=== PATIENT | male | born 1965 | race Caucasian/White ===

== ENCOUNTER → 2017-10-06 | Outpatient (CLI) | payer OTHER ==
--- NOTE | 2017-10-06 11:12 | RADIOLOGY REPORT (SQ) ---
EXAM DESCRIPTION: CHEST 2 VIEWS COMPLETED DATE/TIME: 10/06/2017 10:19 am REASON FOR STUDY: COUGH (R05) COMPARISON: None. EXAM PARAMETERS: NUMBER OF VIEWS: two views TECHNIQUE: Digital Frontal and Lateral radiographic views of the chest acquired. RADIATION DOSE: NA LIMITATIONS: none FINDINGS: LUNGS AND PLEURA: Mild hyperinflation of the lungs and flattening of the diaphragms. The interstitial markings are slightly prominent in size. No acute pulmonary consolidation. No pneumot horax or pleural effusion. MEDIASTINUM AND HILAR STRUCTURES: No masses or contour abnormalities. HEART AND VASCULAR STRUCTURES: Heart normal size. No evidence for failure. BONES: No acute findings. HARDWARE: None in the chest. OTHER: Postsurgical changes right shoulder. IMPRESSION: 1. NO ACUTE RADIOGRAPHIC FINDING IN THE CHEST. TECHNICAL DOCUMENTATION: JOB ID: [id number] [employer]- All Rights Reserved Reading location - IP/workstation name: [email or web address]
--- NOTE | 2017-10-06 14:37 | RADIOLOGY REPORT (SQ) ---
EXAM DESCRIPTION: CAROTID DOPPLER COMPLETED DATE/TIME: 10/06/2017 1:18 pm REASON FOR STUDY: LT CAROTID BRUIT R06.00 DYSPNEA, UNSPECIFIED R09.89 OTH SYMPTOMS AND SIGNS INVOL VING THE CIRC AND RESP SY COMPARISON: None. TECHNIQUE: Grayscale ultrasound, Doppler velocity and spectra, and color Doppler images acquired of the extra-cranial carotid and vertebral arteries. Images stored on PACS. LIMITATIONS: None. FINDINGS: RIGHT CAROTID CCA Velocities: Within normal limits. ICA Velocities Peak systolic 0.93 m/s. End diastolic 0.22 m/s. Proximal ICA/CCA peak systolic ratio 1.2. Mild homogeneous plaque proximal ICA. LEFT CAROTID CCA Velocities: Within normal limits. ICA Velocities Peak systolic 0.90 m/s. End diastolic 0.25 m/s. Proximal ICA/CCA peak systolic ratio 0.9. Mild homogeneous plaque proximal ICA. VERTEBRAL ARTERIES: Antegrade flow. Normal waveforms. SUBCLAVIAN ARTERIES: No finding. OTHER: No other significant finding. IMPRESSION: NO HEMODYNAMICALLY SIGNIFICANT STENOSIS. COMMENT: Quality ID #[id number]: Velocity criteria are extrapolated from the diameter data as defined by t he Society of Radiologists in Ultrasound Consensus Conference. Radiology 2003: 229; 340-346. TECHNICAL DOCUMENTATION: JOB ID: [id number] [employer]- All Rights Reserved Reading location - IP/workstation name: [facility]
== END ==
LOC: RAD 09:39
PROVIDERS: ATTEND Physician Assistant
DX: R06.00 Dyspnea, unspecified (principal); R09.89 Other specified symptoms and signs involving the circulatory and respiratory systems; R05 Cough
CPT/HCPCS: 71046; 93880

== ENCOUNTER → 2017-10-07 | Outpatient (CLI) | payer OTHER ==
[2017-10-07 10:30] LABS: ALANINE AMINOTRANSFERASE 121 U/L (21-72); ALBUMIN 4.4 g/dL (3.5-5.0); ALKALINE PHOSPHATASE 92 U/L (38-126); ANION GAP 12 (5-19); ASPARTATE AMINO TRANSFERASE 91 U/L (17-59); BILIRUBIN,DIRECT 0.3 mg/dL (0.0-0.4); BILIRUBIN,TOTAL 0.5 mg/dL (0.2-1.3); BLOOD UREA NITROGEN 9 mg/dL (7-20); CALCIUM 9.5 mg/dL (8.4-10.2); CARBON DIOXIDE 27 mmol/L (22-30); CHLORIDE 104 mmol/L (98-107); CHOLESTEROL 305.33 mg/dL (0-200); GLUCOSE 150 mg/dL (75-110); POTASSIUM 4.9 mmol/L (3.6-5.0); SODIUM 143.1 mmol/L (137-145); TOTAL PROTEIN 7.7 g/dL (6.3-8.2)
[2017-10-07 10:42] LABS: DIRECT LDL 179 mg/dL (<100)
[2017-10-07 10:44] LABS: TRIGLYCERIDES 610 mg/dL (<150)
== END ==
LOC: OD 08:39
PROVIDERS: ATTEND Family Medicine
DX: J44.9 Chronic obstructive pulmonary disease, unspecified (principal)
CPT/HCPCS: 36415; 80053; 80061; 83036

== ENCOUNTER → 2017-10-23 | Outpatient (CLI) | payer OTHER ==
--- NOTE | 2017-10-23 10:48 | RADIOLOGY REPORT (SQ) ---
EXAM DESCRIPTION: CT CHEST WITHOUT COMPLETED DATE/TIME: 10/23/2017 10:32 am REASON FOR STUDY: COUGH R05 COUGH COMPARISON: Two-view chest 10/06/2017 TECHNIQUE: CT scan performed of the chest without intravenous contrast. Images reviewed with lung, soft tissue and bone windows. Reconstructed coronal and sagittal MPR images reviewed. All images st ored on PACS. All CT scanners at this facility use dose modulation, iterative reconstruction, and/or weight based d osing when appropriate to reduce radiation dose to as low as reasonably achievable (ALARA). [facility]: Dose Right [facility]: CareDose [facility]: Dose Right [facility]: Teradose 4D [facility]: [employer] RADIATION DOSE: CT Rad equipment meets quality standard of care and radiation dose reduction techniq ues were employed. CTDIvol: 12.6 mGy. DLP: 489 mGy-cm. mGy. LIMITATIONS: No technical limitations. FINDINGS: LUNGS AND PLEURA: Biapical pleuroparenchymal scarring is present. At the left lung apex, a 1.1 x 0.6 cm nodule is present on axial image 20, sagittal image 51, and coronal image 72. Conside r either short interval follow-up with repeat CT to exclude growth, or PET-CT for follow-up. Minimal ground-glass opacity just superior to the right minor fissure axial image 58 and coronal imag e 43 of doubtful clinical significance. Lungs otherwise demonstrate moderate changes of obstructive lung disease. No pleural effusion. No p neumothorax. HILAR AND MEDIASTINAL STRUCTURES: No identified masses or abnormal nodes. No obvious aneurysm. HEART AND VASCULAR STRUCTURES: No aneurysm. No pericardial effusion. UPPER ABDOMEN: Fatty liver THYROID AND OTHER SOFT TISSUES: No masses. No adenopathy. BONES: No significant finding. HARDWARE: None in the chest. OTHER: No other significant findings. IMPRESSION: 1.1 x 0.6 cm left apical lung nodule versus scar Obstructive lung disease TECHNICAL DOCUMENTATION: JOB ID: [id number] Quality ID # [id number]: Final reports with documentation of one or more dose reduction techniques (e.g., Au tomated exposure control, adjustment of the mA and/or kV according to patient size, use of iterative reconstruction technique) 2010 [employer]- All Rights Reserved Reading location - IP/workstation name: [facility]
== END ==
LOC: RAD 09:39
PROVIDERS: ATTEND Physician Assistant
DX: R05 Cough (principal)
CPT/HCPCS: 71250

== ENCOUNTER → 2017-11-04 | Outpatient (CLI) | payer OTHER ==
--- NOTE | 2017-11-05 09:08 | RADIOLOGY REPORT (SQ) ---
EXAM DESCRIPTION: PET CT SKULL/THIGH COMPLETED DATE/TIME: 11/04/2017 7:23 pm REASON FOR STUDY: OTHER NONSPECIFIC ABNORMAL FINDING OF LUNG FIELD R91.8 OTHER NONSPECIFIC ABNORMAL FINDING OF LUNG FIELD COMPARISON: None. RADIONUCLIDE AND DOSE: 11.54 mCi F18 FDG The route of agent administration: Intravenous FASTING BLOOD SUGAR: 148 mg/dl CONTRAST TYPE AND DOSE: No CT contrast given. TECHNIQUE: Blood glucose level was verified. Above dose of FDG was injected intravenously. 2-D seg mented attenuation correction images were obtained from the base of the skull to the midthighs. Nonc ontrast CT images were obtained for attenuation correction and fusion with emission images. CT image s were performed without oral or intravenous contrast and are not sensitive for parenchymal lesions. A series of overlapping emission PET images were obtained. Images reviewed and manipulated at [facility] work station by the radiologist. Images stored on PACS. LIMITATIONS: None. FINDINGS: HEAD AND NECK: No areas of abnormal metabolic activity in the soft tissues of the head and neck. CHEST: No areas of abnormal metabolic activity in the chest. ABDOMEN AND PELVIS: No areas of abnormal metabolic activity in the abdomen or pelvis. Expected physi ologic activity is present in the genitourinary system and bowel. PROXIMAL LOWER EXTREMITIES: No areas of abnormal metabolic activity in the soft tissues of the lower extremities. BONES: No abnormal metabolic activity in the visualized skeleton. ADDITIONAL CT FINDINGS: Non hypermetabolic apical scarring. Paraseptal emphysema. OTHER: No other significant findings. IMPRESSION: Non hypermetabolic apical scarring. TECHNICAL DOCUMENTATION: JOB ID: [id number] [employer]- All Rights Reserved Reading location - IP/workstation name: [email or web address]
== END ==
LOC: RAD 16:33
PROVIDERS: ATTEND Physician Assistant
DX: R91.1 Solitary pulmonary nodule (principal); J43.9 Emphysema, unspecified
CPT/HCPCS: 78815; A9552

== ENCOUNTER → 2018-04-30 | Outpatient (CLI) | payer OTHER ==
[2018-04-30 12:22] LABS: ALANINE AMINOTRANSFERASE 52 U/L (21-72); ASPARTATE AMINO TRANSFERASE 32 U/L (17-59)
== END ==
LOC: OD 11:26
PROVIDERS: ATTEND Family Medicine
DX: E78.2 Mixed hyperlipidemia (principal)
CPT/HCPCS: 36415; 84450; 84460

== ENCOUNTER → 2018-08-17 | Outpatient (CLI) | payer OTHER ==
[2018-08-17 15:06] LABS: ANION GAP 10 (5-19); BLOOD UREA NITROGEN 9 mg/dL (7-20); CARBON DIOXIDE 25 mmol/L (22-30); CHLORIDE 105 mmol/L (98-107); GLUCOSE 216 mg/dL (75-110); POTASSIUM 4.3 mmol/L (3.6-5.0)
== END ==
LOC: OD 13:11
PROVIDERS: ATTEND Family Medicine
DX: E11.9 Type 2 diabetes mellitus without complications (principal)
CPT/HCPCS: 36415; 80048; 83036

== ENCOUNTER → 2019-04-28 | Outpatient (CLI) | payer OTHER ==
--- NOTE | 2019-04-28 12:25 | RADIOLOGY REPORT (SQ) ---
EXAM DESCRIPTION: SHOULDER RIGHT 2 OR MORE VIEWS COMPLETED DATE/TIME: 04/28/2019 10:51 am REASON FOR STUDY: PAIN IN RIGHT SHOULDER M25.511 PAIN IN RIGHT SHOULDER COMPARISON: None. NUMBER OF VIEWS: Three views. TECHNIQUE: Internal rotation, external rotation, and Y view images acquired of the right shoulder. LIMITATIONS: None. FINDINGS: MINERALIZATION: Normal. BONES: No acute fracture. No worrisome bone lesions. JOINTS: No dislocation. VISUALIZED LUNGS AND RIBS: No pneumothorax. No rib fracture. SOFT TISSUES: No radiopaque foreign body. OTHER: No other significant finding. IMPRESSION: NEGATIVE STUDY OF THE RIGHT SHOULDER. NO RADIOGRAPHIC EVIDENCE OF ACUTE INJURY. TECHNICAL DOCUMENTATION: JOB ID: [id number] 2010 [employer]- All Rights Reserved Reading location - IP/workstation name: [email or web address]
== END ==
LOC: OD 10:01
PROVIDERS: ATTEND Family Medicine
DX: M25.511 Pain in right shoulder (principal)

== ENCOUNTER → 2019-05-19 | Outpatient (CLI) | payer OTHER ==
--- NOTE | 2019-05-19 08:50 | RADIOLOGY REPORT (SQ) ---
EXAM DESCRIPTION: MRI RT UPPER JOINT WITHOUT COMPLETED DATE/TIME: 05/19/2019 7:55 am REASON FOR STUDY: (M25.511)PAIN IN RIGHT SHOULDER M25.511 PAIN IN RIGHT SHOULDER COMPARISON: None. TECHNIQUE: Right shoulder images acquired and stored on PACS. Multiplanar imaging to include fat sen sitive sequences such as T1, water sensitive sequences such as FST2/STIR, cartilage sensitive sequenc es such as FSPD/gradient-echo sequences. LIMITATIONS: Motion artifact. Metal artifact. FINDINGS: BONE MARROW AND CORTEX: No worrisome bone lesions or marrow replacement. No occult fractur es. JOINT OR BURSAL EFFUSION: Small amount of fluid in the subacromial bursa. Glenohumeral joint effusio n. GLENO-HUMERAL ARTICULATION: Cartilage loss. Small humeral head osteophytes. ACROMION AND AC JOINT: Type 1 acromion. Mild AC joint arthropathy. ROTATOR CUFF AND INTERVAL: Calcific tendinopathy and peritendinitis. No full-thickness tear. Mild fibrosis rotator interval. LABRUM AND BICEPS LABRAL COMPLEX: Intact. Increased signal in the intra-articular biceps. Distal biceps intact. REMAINDER OF LABRUM AND IGHL : Intact. PERIARTICULAR AND ADJACENT SOFT TISSUES: No masses or abnormal nodes. OTHER: No other significant finding. IMPRESSION: 1. Technical limitations due to metal and motion artifact. Calcific tendinopathy and peritendinitis. No full-thickness tear. 2. Glenohumeral joint arthropathy. Joint effusion. TECHNICAL DOCUMENTATION: JOB ID: [id number] 2010 [employer]- All Rights Reserved Reading location - IP/workstation name: [email or web address]
== END ==
LOC: RAD 06:56
PROVIDERS: ATTEND Family Medicine
DX: M25.511 Pain in right shoulder (principal)

== ENCOUNTER → 2019-07-02 | Outpatient (CLI) | payer OTHER ==
[2019-07-02 11:07] LABS: ABSOLUTE BASOPHILS # (AUTO) 0.1 10^3/uL (0.0-0.2); ABSOLUTE EOSINOPHILS # (AUTO) 0.5 10^3/uL (0.0-0.6); ABSOLUTE LYMPHOCYTES (AUTO) 2.4 10^3/uL (0.5-4.7); ABSOLUTE MONOCYTES (AUTO) 0.5 10^3/uL (0.1-1.4); ABSOLUTE NEUT (AUTO) 7.9 10^3/uL (1.7-8.2); BASOPHILS % (AUTO) 1.3 % (0-2); EOSINOPHILS % (AUTO) 4.2 % (0-6); HEMATOCRIT 43.5 % (37.9-51.0); MEAN CORPUSCULAR HEMOGLOBIN 31.3 pg (27.0-33.4); MEAN CORPUSCULAR HGB CONC 34.4 g/dL (32.0-36.0); MEAN CORPUSCULAR VOLUME 91 fl (80-97); MONOCYTES % (AUTO) 4.5 % (3-13); RED BLOOD COUNT 4.78 10^6/uL (4.35-5.55); TOTAL CELLS COUNTED % (AUTO) 100 %; WHITE BLOOD COUNT 11.4 10^3/uL (4.0-10.5)
--- NOTE | 2019-07-02 11:20 | RADIOLOGY REPORT (SQ) ---
EXAM DESCRIPTION: HAND BILATERAL 2 VIEWS IMAGES COMPLETED DATE/TIME: 07/02/2019 11:03 am REASON FOR STUDY: PAIN,JOINT,SUSIE HAND M25.541 PAIN IN JOINTS OF RIGHT HAND COMPARISON: None. EXAM PARAMETERS: NUMBER OF VIEWS: Two views right hand. Two views left hand. TECHNIQUE: AP and lateral radiographic images acquired of bilateral hands. LIMITATIONS: None. FINDINGS: RIGHT HAND: MINERALIZATION: Normal. BONES: No acute fracture or dislocation. No worrisome bone lesions. No significant osteophytes. JOINTS: No erosions. No domenic-articular osteopenia. No chondrocalcinosis. SOFT TISSUES: No swelling. No calcifications. OTHER: No other significant finding. LEFT HAND: MINERALIZATION: Normal. BONES: No acute fracture or dislocation. No worrisome bone lesions. No significant osteophytes. JOINTS: No erosions. No domenic-articular osteopenia. No chondrocalcinosis. SOFT TISSUES: No swelling. No calcifications. OTHER: No other significant finding. IMPRESSION: NEGATIVE STUDY BILATERAL HANDS. NO ACUTE POST-TRAUMATIC CHANGES. NO EXPLANATION FOR PAIN . TECHNICAL DOCUMENTATION: JOB ID: [id number] 2010 [facility]- All Rights Reserved Reading location - IP/workstation name: [email or web address]
[2019-07-02 11:23] LABS: ALBUMIN 4.3 g/dL (3.5-5.0); ALKALINE PHOSPHATASE 95 U/L (38-126); ANION GAP 8 (5-19); ASPARTATE AMINO TRANSFERASE 35 U/L (17-59); BILIRUBIN,DIRECT 0.1 mg/dL (0.0-0.4); BILIRUBIN,TOTAL 0.5 mg/dL (0.2-1.3); BLOOD UREA NITROGEN 15 mg/dL (7-20); C-REACTIVE PROTEIN 24.3 mg/L (<10.0); CALCIUM 9.4 mg/dL (8.4-10.2); CARBON DIOXIDE 28 mmol/L (22-30); CHLORIDE 98 mmol/L (98-107); POTASSIUM 4.7 mmol/L (3.6-5.0); TOTAL PROTEIN 7.4 g/dL (6.3-8.2)
[2019-07-02 11:38] LABS: GLUCOSE 439 mg/dL (75-110)
[2019-07-02 11:49] LABS: PLATELET COUNT 289 10^3/uL (150-450)
[2019-07-02 12:01] LABS: ERYTHROCYTE SEDIMENTATION RATE 41 mm/hr (0-20)
== END ==
LOC: OD 10:25
PROVIDERS: ATTEND Family Medicine
DX: M25.541 Pain in joints of right hand (principal); M25.542 Pain in joints of left hand
CPT/HCPCS: 36415; 80053; 84443; 85025; 85652; 86140; 86200; 86225; 86235; 86431

== ENCOUNTER → 2019-10-01 | Outpatient (CLI) | payer OTHER ==
--- NOTE | 2019-10-01 14:57 | RADIOLOGY REPORT (SQ) ---
EXAM DESCRIPTION: CT LUNG CANCER SCREENING IMAGES COMPLETED DATE/TIME: 10/01/2019 1:17 pm REASON FOR STUDY: Z87.891 PERSONAL HISTORY OF NICOTINE DEPENDENCE Z87.891 PERSONAL HISTORY OF NICOT INE DEPENDENCE Has the patient had a Chest CT scan within the past year? N Was the patient offered tobacco cessation counseling? Y Was the patient engaged in shared decision making for this test? N Does the patient have signs or symptoms of Lung Cancer? N Is the patient a smoker? Y How many pack years? 38 How many years since quitting smoking? 0 Patients age: 54 COMPARISON: PET-CT dated 11/04/2017, CT chest dated 10/23/2017 TECHNIQUE: Low Dose CT scan performed of the chest without intravenous contrast for purposes of scre ening for lung cancer. Images reviewed with lung, soft tissue and bone windows. Reconstructed coron al and sagittal MPR images reviewed. All images stored on PACS. All CT scanners at this facility use dose modulation, iterative reconstruction, and/or weight based d osing when appropriate to reduce radiation dose to as low as reasonably achievable (ALARA). [facility]: Dose Right [facility]: CareDose [facility]: Dose Right [facility]: Teradose 4D [facility]: [employer] RADIATION DOSE: CT Rad equipment meets quality standard of care and radiation dose reduction techniq ues were employed. CTDIvol: 2.1 mGy. DLP: 83 mGy-cm. mGy. . LIMITATIONS: No technical limitations. FINDINGS: LUNG NODULES: Description: Subsolid right upper lobe nodule new from 11/04/2017. Size: 7 .7 mm. There is an additional 6.9 x 9 mm nodule in the left upper lobe. This is stable. There is s carring in the right apex also unchanged. REMAINING LUNGS AND PLEURA: No pleural effusions or calcifications. No pneumothorax. Stable logan trilobular emphysematous changes with subpleural blebs. HILAR AND MEDIASTINAL STRUCTURES: No identified masses. No abnormal nodes. HEART AND VASCULAR STRUCTURES: No aortic aneurysm. No pericardial effusion. No cardiac devices. CORONARY ARTERY CALCIFICATIONS: No significant calcifications. UPPER ABDOMEN, THYROID, BONES, OTHER SOFT TISSUES: No significant findings. IMPRESSION: PROBABLY BENIGN FINDINGS IN THE LUNGS. 7.7 MM SUBSOLID NODULE NEW FROM PRIOR EXAM. YASMIN RT-TERM FOLLOW-UP IS RECOMMENDED. OTHER FINDINGS ABOVE. LUNGRADS: LUNGRADS: 3, PROBABLY BENIGN. PROBABLY BENIGN FINDING(S)- SHORT TERM FOLLOW UP SUGGESTED; INCLUDES NODULES WITH A LOW LIKELIHOOD OF BECOMING A CLINICALLY ACTIVE CANCER. MODIFIER: NONE. RECOMMENDATION: Followup LDCT in 6 months. COMMENT: CRITERIA: Solid nodule(s): ? 6 mm to < 8 mm at baseline OR new 4 mm to < 6 mm. Part solid nodule(s): ? 6 mm total diameter with solid component < 6 mm OR new < 6 mm total diameter . Non solid nodule(s) (GGN): ? [address] or new. TECHNICAL DOCUMENTATION: JOB ID: [id number] Quality ID # [id number]: Final reports with documentation of one or more dose reduction techniques (e.g., Au tomated exposure control, adjustment of the mA and/or kV according to patient size, use of iterative reconstruction technique) 2010 [facility] Radiology Reading location - IP/workstation name: [email or web address]
== END ==
LOC: RAD 13:05
PROVIDERS: ATTEND Registered Nurse
DX: Z12.2 Encounter for screening for malignant neoplasm of respiratory organs (principal); Z87.891 Personal history of nicotine dependence; J43.2 Centrilobular emphysema; R91.1 Solitary pulmonary nodule
CPT/HCPCS: G0297